=== PATIENT | female | born 1985 | race Caucasian/White ===

== ENCOUNTER 2023-04-01 20:10 | Inpatient (IN) | payer OTHER ==
[2023-04-01 21:41] LABS: BASO % 0.1 % (0-2.0); EOS % 0.4 % (0-4.5); HEMATOCRIT 33.3 % (32.4-45.2); HEMOGLOBIN 11.8 GM/dL (10.7-15.3); LYMPH % 19.9 % (8-40); MCH 31.6 pg (25.7-33.7); MCHC 35.3 g/dl (32.0-36.0); MEAN CELL VOLUME 89.7 fl (80-96); MEAN PLT VOLUME 7.8 fl (7.5-11.1); MONO % 8.5 % (3.8-10.2); NEUT % 71.1 % (42.8-82.8); PLATELET COUNT 317 10^3/uL (134-434); RBC 3.71 M/mm3 (3.60-5.2); RDW 13.5 % (11.6-15.6); WHITE BLOOD COUNT 9.8 K/mm3 (4.0-10.0)
[2023-04-01 21:54] LABS: INR 0.97 (0.83-1.09); PROTHROMBIN TIME (PATIENT) 11.3 SEC (9.7-13.0)
[2023-04-01 21:57] LABS: ACTIVATED PTT 25.6 SECONDS (25.2-36.5); POTASSIUM 3.8 mmol/L (3.5-5.1)
[2023-04-01 21:58] LABS: CALCIUM 8.5 mg/dL (8.5-10.1)
[2023-04-01 22:03] LABS: CREATININE 0.5 mg/dL (0.55-1.3)
[2023-04-01] MEDS: ELECTROLYTE-148 SOLN 1,000 ML IV SCH (22:15)
[2023-04-01 22:52] LABS: HIV INTERPRETATION NEGATIVE (NEGATIVE)
[2023-04-01 23:24] VITALS: BMI 23.8
[2023-04-02] MEDS ORDERED: FENTANYL/BUPIVACAINE/NS/PF - PCEA - 50 ML DISP.SYRIN EP ONE ×4 (01:21→16:10)
[2023-04-02] MEDS ORDERED: BUPIVACAINE HCL/PF 0.25% (2.5MG/ML) 10 ML VIAL ONE ×2 (01:29→17:00)
[2023-04-02] MEDS: FENTANYL/BUPIVACAINE/NS/PF - PCEA - 50 ML DISP.SYRIN EP SCH ×3 (01:50→16:15)
[2023-04-02] MEDS ORDERED: NALOXONE HCL 0.4 MG/ML VIAL IVPUSH PRN (02:08)
[2023-04-02] MEDS: ELECTROLYTE-148 SOLN 1,000 ML IV SCH ×3 (02:10→14:22)
[2023-04-02] MEDS ORDERED: OXYTOCIN 30 UNITS in 0.9% NS 30 UNIT/500 ML INFUS.BAG IVPB ONE (08:58)
[2023-04-02] MEDS ORDERED: OXYTOCIN 30 UNITS in 0.9% NS 30 UNIT/500 ML INFUS.BAG IVPB SCH (09:00)
[2023-04-02] MEDS ORDERED: IBUPROFEN 600 MG TABLET (FP) PO PRN ×2 (19:07→19:10)
[2023-04-02] MEDS ORDERED: ACETAMINOPHEN 325 MG TABLET (FP) PO PRN ×2 (19:07→19:10)
[2023-04-02] MEDS ORDERED: ONDANSETRON 4 MG/2 ML VIAL IVPUSH PRN (19:07)
[2023-04-02] MEDS ORDERED: morphine SULFATE/PF 1 MG/2 ML (2cc Syringe - QUVA) EP ONE ×2 (19:07→20:39)
[2023-04-02] MEDS ORDERED: BENZOCAINE 28 GM HEMORRHOIDAL OINTMENT TP PRN (19:10)
[2023-04-02] MEDS ORDERED: METHYLERGONOVINE MALEATE 0.2 MG/1 ML AMP IM PRN (19:10)
[2023-04-02] MEDS ORDERED: IBUPROFEN 800 MG/8 ML IJ IVPB PRN (19:10)
[2023-04-02] MEDS ORDERED: WITCH HAZEL 50% (TUCKS) 40 PAD/JAR PAD TP PRN (19:10)
[2023-04-02] MEDS ORDERED: BENZOCAINE 20% 57 GM BOTTLE TP PRN (19:10)
[2023-04-02] MEDS ORDERED: LIDO 2%/EPI 1:200000 PRESRVFRE (20 ML SDVIAL) ONE (19:35)
[2023-04-02] MEDS ORDERED: ceFAZolin SODIUM 1 GM VIAL ONE (19:37)
[2023-04-02] MEDS ORDERED: SODIUM CHLORIDE 0.9% P/F 10 ML VIAL IJ ONE (19:37)
[2023-04-02] MEDS ORDERED: MEPERIDINE HCL 25 MG/ML VIAL ONE (19:56)
[2023-04-02] MEDS ORDERED: OXYTOCIN 10 UNITS/ML VIAL ONE (19:57)
[2023-04-02] MEDS ORDERED: morphine SULFATE/PF 1 MG/2 ML (2cc Syringe - QUVA) ONE (20:03)
[2023-04-02] MEDS ORDERED: OXYTOCIN 20 UNITS in 0.9% NS 20 UNIT/1,000 ML INFUS.BAG IV ONE (22:08)
[2023-04-02] MEDS: OXYTOCIN 20 UNITS in 0.9% NS 20 UNIT/1,000 ML INFUS.BAG IV SCH (22:10)
[2023-04-03] MEDS ORDERED: oxyCODONE HCL 5 MG TABLET PO PRN (07:10)
[2023-04-03 07:25] LABS: BASO % 0.1 % (0-2.0); HEMATOCRIT 33.2 % (32.4-45.2); HEMOGLOBIN 11.3 GM/dL (10.7-15.3); LYMPH % 5.7 % (8-40); MEAN CELL VOLUME 91.2 fl (80-96); MEAN PLT VOLUME 7.7 fl (7.5-11.1); MONO % 4.6 % (3.8-10.2); NEUT % 89.6 % (42.8-82.8); PLATELET COUNT 317 10^3/uL (134-434); RBC 3.64 M/mm3 (3.60-5.2); RDW 13.7 % (11.6-15.6); WHITE BLOOD COUNT 18.6 K/mm3 (4.0-10.0)
[2023-04-03] MEDS: OXYTOCIN 20 UNITS in 0.9% NS 20 UNIT/1,000 ML INFUS.BAG IV SCH (07:43)
[2023-04-03] MEDS: FERROUS SO4 325 MG TABLET (FP) PO SCH ×2 (08:00→17:55)
[2023-04-03] MEDS: PRENATAL VITAMINS W/ FOLIC ACID TABLET (FP) PO SCH (10:00)
[2023-04-03] MEDS ORDERED: HYDROCORTISONE 0.5% TOPICAL CREAM 30 GM TUBE TP PRN (12:09)
[2023-04-03] MEDS ORDERED: BISACODYL 10 MG SUPP.RECT RC PRN (19:10)
[2023-04-03] MEDS: SIMETHICONE 80 MG TAB.CHEW (FP) PO PRN (20:27)
[2023-04-04] MEDS: FERROUS SO4 325 MG TABLET (FP) PO SCH ×2 (08:57→17:14)
[2023-04-04] MEDS: PRENATAL VITAMINS W/ FOLIC ACID TABLET (FP) PO SCH (09:56)
[2023-04-04] MEDS: SIMETHICONE 80 MG TAB.CHEW (FP) PO PRN (21:02)
[2023-04-05 08:41] LABS: BASO % 0.1 % (0-2.0); EOS % 1.7 % (0-4.5); HEMATOCRIT 36.6 % (32.4-45.2); HEMOGLOBIN 11.9 GM/dL (10.7-15.3); LYMPH % 12.1 % (8-40); MCH 30.1 pg (25.7-33.7); MCHC 32.7 g/dl (32.0-36.0); MEAN PLT VOLUME 7.5 fl (7.5-11.1); MONO % 5.3 % (3.8-10.2); NEUT % 80.8 % (42.8-82.8); PLATELET COUNT 411 10^3/uL (134-434); RBC 3.98 M/mm3 (3.60-5.2); RDW 13.6 % (11.6-15.6); WHITE BLOOD COUNT 9.6 K/mm3 (4.0-10.0)
[2023-04-05] MEDS: FERROUS SO4 325 MG TABLET (FP) PO SCH (08:50)
[2023-04-05] MEDS: PRENATAL VITAMINS W/ FOLIC ACID TABLET (FP) PO SCH (10:50)
[2023-04-05 12:12] VITALS: BP 107/66; PULSE 64; RESP 17; TEMP 98.4
== END 2023-04-05 14:00 | disposition home or self-care (01) | DRG 540 ==
LOC: JLDR 20:10 → J3W 04-02 22:46
PROVIDERS: ADMIT Obstetrics & Gynecology; ATTEND Obstetrics & Gynecology
PROC: 10D00Z1 Extraction of Products of Conception, Low, Open Approach (ICD-10-PCS; principal; 2023-04-02)
DX: O48.0 Post-term pregnancy (principal); Z3A.41 41 weeks gestation of pregnancy; O62.1 Secondary uterine inertia; Z37.0 Single live birth
CPT/HCPCS: 36415; 80048; 85025; 85610; 85730; 86780; 86850; 86900; 86901; 87389; 88307-TC; 94010